=== PATIENT | female | born 1950 | race Caucasian/White ===

== ENCOUNTER 2021-12-29 14:37 | Observation (INO) ==
[2021-12-29] MEDS ORDERED: Ondansetron 4 MG/2 ML VIAL IVP PRN (21:10)
[2021-12-29] MEDS ORDERED: Naloxone 0.4 MG/ML INJ IVP PRN (21:10)
[2021-12-29] MEDS ORDERED: Nitroglycerin 0.4 MG TAB.SUBL SL PRN (21:11)
[2021-12-29] MEDS ORDERED: Dextrose 4 GM Chewable Tablets PO PRN ×2 (21:12)
[2021-12-29] MEDS ORDERED: D5% in Water 1,000 ML IVC PRN (21:12)
[2021-12-29] MEDS ORDERED: *HR* Dextrose 50 % in Water (Syg) 50 ML SYRINGE IVP PRN (21:12)
[2021-12-29] MEDS: Insulin LISPRO 300 UNITS/3 ML VIAL SUBQ SCH (21:27)
[2021-12-30 02:52] LABS: Hematocrit 36.4 % (35.3-44.9); Hemoglobin 12.2 g/dL (11.5-15.4); Mean Corpuscular HGB Conc 33.5 g/dL (31.6-35.5); Mean Corpuscular Hemoglobin 29.7 pg (28.0-33.3); Mean Corpuscular Volume 88.6 fL (83.0-100.0); Mean Platelet Volume 11.1 fL (9.4-12.4); Platelet Count 237 K/mcL (140-400); Red Blood Count 4.11 M/mcL (3.82-4.97); Red Cell Distribution Width 13.7 % (11.5-14.5); White Blood Count 9.9 K/mcL (4.3-11.1)
[2021-12-30 03:06] LABS: Estimated Average Glucose 292 mg/dl; Hemoglobin A1C 11.8 %
[2021-12-30 03:09] LABS: Estimated Average Glucose 292 mg/dl; Hemoglobin A1C 11.8 %
[2021-12-30 03:12] LABS: Calcium 8.1 mg/dL (8.6-10.3); Potassium 4.7 mEq/L (3.5-5.1)
[2021-12-30] MEDS ORDERED: Insulin LISPRO 300 UNITS/3 ML VIAL SUBQ SCH (03:30)
[2021-12-30] MEDS: Insulin LISPRO 300 UNITS/3 ML VIAL SUBQ SCH ×3 (07:34→16:08)
[2021-12-30] MEDS ORDERED: Regadenoson 0.4 MG/5 ML SYRINGE IVP ONE (08:02)
[2021-12-30] MEDS ORDERED: Perflutren Lipid Microsphere 1.3 ML in 0.9 % Sodium Chloride 8.7 ML IVP PRN (08:39)
[2021-12-30 08:42] LABS: Albumin 3.6 g/dL (3.5-5.7); Albumin/Globulin Ratio 1.8 (1.1-2.2); Bilirubin,Direct 0.1 mg/dL (0.0-0.2); Bilirubin,Indirect 0.4 mg/dL (0.0-1.0); Bilirubin,Total 0.5 mg/dL (0.3-1.0); Total Protein 5.6 g/dL (6.4-8.9)
[2021-12-30] MEDS ORDERED: 0.9 % Sodium Chloride 1,000 ML IVC SCH (08:45)
[2021-12-30] MEDS ORDERED: Acetaminophen 325 MG TABLET PO PRN (15:52)
[2021-12-30] MEDS ORDERED: Insulin LISPRO 300 UNITS/3 ML VIAL SUBQ ONE (21:40)
[2021-12-31 07:13] VITALS: BP 136/84; PULSE 70; TEMP 97.4; O2SAT 97
[2021-12-31] MEDS: Insulin LISPRO 300 UNITS/3 ML VIAL SUBQ SCH ×2 (07:49→11:06)
[2021-12-31 09:39] LABS: Calcium 8.7 mg/dL (8.6-10.3); Potassium 4.4 mEq/L (3.5-5.1)
== END 2021-12-31 11:42 | disposition home or self-care (01) ==
LOC: 3BNU
PROVIDERS: ADMIT Internal Medicine; ATTEND Internal Medicine